=== PATIENT | female | born 1980 | race Caucasian/White ===

== ENCOUNTER → 2017-03-21 | Outpatient (CLI) | payer MEDICAID | END | disposition disaster alternative care site (69) | LOC: GRAD 10:00 | DX: M54.2 Cervicalgia (principal); M47.896 Other spondylosis, lumbar region; M47.892 Other spondylosis, cervical region; M48.02 Spinal stenosis, cervical region; M25.78 Osteophyte, vertebrae; M54.9 Dorsalgia, unspecified; Z98.890 Other specified postprocedural states; Z98.1 Arthrodesis status ==